=== PATIENT | male | born 1960 | race Caucasian/White ===

== ENCOUNTER 2020-05-08 16:54 | Emergency (ER) | payer MEDICAID, SELFPAY ==
[2020-05-08 17:05] VITALS: BP 144/77; PULSE 79; RESP 18; TEMP 36.7; O2SAT 98
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
[2020-05-08] MEDS: Acetaminophen 500 MG TAB 1000 MG PO (18:30)
[2020-05-08] MEDS: Ibuprofen 600 MG TAB PO (18:30)
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
--- NOTE | 2020-05-08 18:49 | DI.VRAD_ITS ---
PROCEDURE INFORMATION: Exam: XR Left Ribs Exam date and time: 05/08/2020 18:36 Age: 60 years old Clinical indication: Chest wall pain; Other: Left sided rib pain, anterior to posterior. ; Patient HX: Generalized left rib pain, no bb marker used. TECHNIQUE: Imaging protocol: XR Left ribs. Views: 2 views. COMPARISON: No relevant prior studies available. FINDINGS: Bones/joints: Acute nondisplaced left lateral 4th and 5th rib fractures are suspected. Soft tissues: Normal. IMPRESSION: Acute nondisplaced left lateral 4th and 5th rib fractures are suspected. Please correlate with the site of the patient's pain. PROCEDURE INFORMATION: Exam: XR Chest, 2 Views Exam date and time: 05/08/2020 18:36 Age: 60 years old Clinical indication: Chest wall pain; Other: Left sided rib pain, anterior to posterior. ; Patient HX: Generalized left rib pain, no bb marker used. TECHNIQUE: Imaging protocol: XR of the chest Views: 2 views. COMPARISON: No relevant prior studies available. FINDINGS: Lungs: Mild central interstitial thickening. No airspace consolidation. Pleural space: No pleural effusion. No pneumothorax. Heart/Mediastinum: No cardiomegaly. Bones/joints: Please see above. IMPRESSION: Interstitial thickening could reflect a mild acute or chronic bronchitis, reactive airways disease or atypical infection. Dictated and Authenticated by: Melony Suazo MD. Ordering:DIO Gil MD
[2020-05-08 19:51] VITALS: BP 136/79; PULSE 78; RESP 16; TEMP 37; O2SAT 98
--- NOTE | 2020-05-08 19:52 | NUR.NOTE ---
IS teaching with return demonstration.
== END 2020-05-08 19:50 | disposition home or self-care (01) ==
PROVIDERS: Emergency Provider Physician Assistant; PCP Family Medicine
DX: S22.42XA Multiple fractures of ribs, left side, initial encounter for closed fracture (principal); S80.212A Abrasion, left knee, initial encounter; S40.212A Abrasion of left shoulder, initial encounter; S50.312A Abrasion of left elbow, initial encounter; V18.0XXA Pedal cycle driver injured in noncollision transport accident in nontraffic accident, initial encounter; Y93.55 Activity, bike riding; J45.909 Unspecified asthma, uncomplicated
CPT/HCPCS: 99283; 71046; 71100; 99284